=== PATIENT | male | born 1990 ===

== ENCOUNTER 2023-10-27 02:45 | Emergency (ER) | payer OTHER ==
[~2023-10-27] VITALS: Ht 167.6 cm; Wt 75.0 kg
[2023-10-27 02:52] VITALS: BP 146/98; TEMP 98.2
[2023-10-27 04:13] VITALS: PULSE 71
== END 2023-10-27 04:13 | disposition short-term general hospital (02) ==
LOC: COL.ER 02:45
DX: S05.02XA Injury of conjunctiva and corneal abrasion without foreign body, left eye, initial encounter (principal); H10.9 Unspecified conjunctivitis; F17.210 Nicotine dependence, cigarettes, uncomplicated; X58.XXXA Exposure to other specified factors, initial encounter